=== PATIENT | male | born 1970 | race Caucasian/White ===

== ENCOUNTER 2017-10-21 12:40 | Emergency (ER) | payer BC ==
[~2017-10-21] VITALS: Ht 177.8 cm; Wt 73.3 kg
[2017-10-21 14:50] VITALS: BP 119/88
== END 2017-10-21 14:51 | disposition home or self-care (01) ==
LOC: EME 12:40
DX: S01.311A Laceration without foreign body of right ear, initial encounter (principal); W22.8XXA Striking against or struck by other objects, initial encounter; Y92.810 Car as the place of occurrence of the external cause; Z23 Encounter for immunization
CPT/HCPCS: 99281; 99284